=== PATIENT | male | born 2000 | race Two or more races ===

== ENCOUNTER 2023-01-29 16:15 | Emergency (ER) | payer BC ==
[~2023-01-29] VITALS: Ht 172.7 cm; Wt 86.2 kg
--- NOTE | 2023-01-29 16:29 | NUR ---
seen and examined by MD Montero
[2023-01-29] MEDS ORDERED: IBUPROFEN 600 MG TABLET ONE (17:42)
[2023-01-29] MEDS ORDERED: IBUPROFEN 600 MG TABLET PO ONE (17:45)
[2023-01-29] MEDS ORDERED: IBUP-1955 PO (17:51)
[2023-01-29] MEDS ORDERED: TRAM50TA2 PO (17:51)
--- NOTE | 2023-01-29 18:01 | NUR ---
Patient discharged to home in stable condition. Written and verbal after care instructions given. Patient verbalizes understanding of instructions. Stressed follow up or return to ER for worsening s/s.
[2023-01-29 18:03] VITALS: BP 122/80; TEMP 98; O2SAT 99
== END 2023-01-29 18:04 | disposition home or self-care (01) ==
LOC: ER 16:17
DX: S42.001A Fracture of unspecified part of right clavicle, initial encounter for closed fracture (principal); S60.222A Contusion of left hand, initial encounter; S09.90XA Unspecified injury of head, initial encounter; V87.8XXA Person injured in other specified noncollision transport accidents involving motor vehicle (traffic), initial encounter; Y93.89 Activity, other specified; Y92.89 Other specified places as the place of occurrence of the external cause; Y99.8 Other external cause status
CPT/HCPCS: 70450; 71045; 72125; 73030; 73130; A4663